=== PATIENT | female | born 1985 | race Caucasian/White ===

== ENCOUNTER 2016-09-29 06:45 | Day surgery (SDC) | payer MEDICAID ==
[2016-09-28 17:06] VITALS: BMI 33.1
--- NOTE | 2016-09-28 20:02 | PREOPHP ---
DATE OF ADMISSION: 09/29/2016 HISTORY OF PRESENT ILLNESS: Rosario is a 31-year-old, 4, para 4, desires permanent surgical sterilization. PAST MEDICAL HISTORY: None. MEDICATIONS: None. PAST SURGICAL HISTORY: None. OBSTETRICAL HISTORY: Four vaginal delivery. Last delivery was May 03, 2016. GYNECOLOGICAL HISTORY: Regular at 3-4 days. Denies any sexually transmitted disease. Sexually active with 1 partner. SOCIAL HISTORY: Denies any smoking, drugs, or alcohol. FAMILY HISTORY: None. PHYSICAL EXAMINATION: HEENT: Within normal. LUNGS: CTA bilateral. CARDIAC: S1, S2. Regular rhythm. ABDOMEN: Soft, nontender. Negative distention. EXTREMITIES: Negative edema. No calf tenderness. GENITOURINARY: Vaginal exam, normal external genitalia. Cervix negative. Negative lesions. Adnexa negative for masses, nontender bilateral. Fundus within normal limits. ASSESSMENT: Multiparous, desires permanent surgical sterilization. PLAN: Is consent for laparoscopic bilateral tubal sterilization. Risks, benefits, and alternatives explained, all questions were answered. Dictated By: Ebenezer Hernández MD /everett/fredi /Document#: [id number]
[~2016-09-29] VITALS: Ht 147.3 cm; Wt 59.2 kg
[2016-09-29] VITALS (8 sets, daily range): BP systolic 113–130; BP diastolic 59–76; PULSE 68–88; RESP 12–18; Ht 147.3 cm; Wt 59.2 kg
[2016-09-29 07:35] LABS: BASOPHILS % 0.4 % (0.0-2.0); EOSINOPHILS # 0.1 10^3/ul (0.0-0.5); HEMATOCRIT 38.6 % (37.0-47.0); HEMOGLOBIN 12.9 g/dl (12.0-16.0); LYMPHOCYTES # 2.1 10^3/ul (0.8-2.9); MEAN CORPUSCULAR HEMOGLOBIN 29.5 pg (29.0-33.0); MEAN CORPUSCULAR HGB CONC 33.4 g/dl (32.0-37.0); MEAN CORPUSCULAR VOLUME 88.1 fl (82.0-101.0); MEAN PLATELET VOLUME 10.6 fl (7.4-10.4); MONOCYTE # 0.5 10^3/ul (0.3-0.9); MONOCYTES % 6.5 % (0.0-11.0); NEUTROPHILS % 62.7 % (39.0-77.0); PLATELET COUNT 291 10^3/UL (140-415); RED BLOOD COUNT 4.38 10^6/ul (4.20-5.40); RED CELL DISTRIBUTION WIDTH 13.7 % (11.5-14.5); WHITE BLOOD COUNT 7.3 10^3/ul (4.8-10.8)
[2016-09-29] MEDS ORDERED: PROPOFOL 20 ML ONE (08:05)
[2016-09-29] MEDS ORDERED: FENTAnyl 50 MCG/ML VIAL ONE (08:05)
[2016-09-29] MEDS ORDERED: ROCURONIUM 50 MG INJ ONE (08:05)
[2016-09-29] MEDS ORDERED: LIDOCAINE 1% (MDV) 20 ML INJ ONE (08:05)
[2016-09-29] MEDS ORDERED: MIDAZOLAM 1 MG/ML 2 ML INJ ONE (08:05)
[2016-09-29] MEDS ORDERED: PHENYLephrine (100 MCG/ML) 5ML SYG ONE (08:14)
[2016-09-29] MEDS ORDERED: CEFAZOLIN 1 GM INJ ONE (08:15)
[2016-09-29] MEDS ORDERED: DEXAMETHASONE 4 MG/ML 1 ML INJ ONE (08:15)
[2016-09-29] MEDS ORDERED: FAMOTIDINE 20 MG INJ ONE (08:15)
[2016-09-29] MEDS ORDERED: ONDANSETRON 4 MG INJ ONE (08:15)
[2016-09-29] MEDS ORDERED: ATROPINE 1 MG/10 ML SYRINGE ONE (08:40)
[2016-09-29] MEDS ORDERED: SUGAMMADEX SODIUM 200 MG/2 ML VIAL IV ONE (08:49)
[2016-09-29] MEDS ORDERED: KETOROLAC 30 MG INJ ONE (08:50)
--- NOTE | 2016-09-29 08:53 | SIPON ---
Date/Time of Note Date/Time of Note DATE: 09/29/16 TIME: 08:52 Operative Report Preoperative Diagnosis multiparous desire surgical sterilization Postoperative Diagnosis same Operation/Procedure Performed laparoscopic tubal fulguration Surgeon: GINA LANIER MD Anesthesia Type: general Estimated Blood Loss: minimal Transfusion Required: no Specimen: none Grafts/Implants: none Complications: no GINA LANIER MD Sep 29, 2016 08:53
--- NOTE | 2016-09-29 09:25 | PD.PPDC ---
[facility] Discharge Instruction Condition Patient Condition: Fair Diet Diet: Resume Regular Diet Activity/Restrictions Activity: Normal Activity May Shower Restrictions: No Exercising No Lifting No Driving No Sexual Activity Nothing in the Vagina No [place] No Tampons, douche Follow-up Follow-up with Physician: 2, Week/Weeks Return to clinic for [facility] REP Instructions: Fever greater than 101 Chills Worsening abdominal pain Excessive Vaginal Bleeding More than 2 pads per hour Unable to tolerate diet OB Instructions: Breast Tenderness Depression Blurried Vision Headache Surgical Instructions: Incisional Drainage Incisional Redness GINA LANIER MD Sep 29, 2016 09:25
[2016-09-29] MEDS ORDERED: HYDROmorphONE (0.2 MG/ML) 10ML SYG IV PRN ×2 (09:30)
--- NOTE | 2016-09-29 11:44 | OPR ---
DATE OF OPERATION: 09/29/2016 PREOPERATIVE DIAGNOSIS: Parity, desires permanent surgical sterilization. POSTOPERATIVE DIAGNOSIS: Parity, desires permanent surgical sterilization. OPERATION PERFORMED: Laparoscopic bilateral tubal fulguration. SURGEON: Dr. Hernández. FORM [employer] [address] [address] FORMS: None. ANESTHESIA: General. COMPLICATIONS: None. ESTIMATED BLOOD LOSS: Minimal. FINDINGS: Normal uterus, tubes, and ovaries. OPERATIVE PROCEDURE: The patient was taken to the operating room, where general anesthesia was obtained without difficulty. The patient was then found to have a small anteverted uterus with normal adnexa. She was then placed in a dorsal lithotomy position and prepared and draped in a sterile fashion. A heavy- weighted speculum was then placed in the patient's vagina and the anterior lip of the cervix was grasped with a single-tooth tenaculum. A HUMI uterine manipulator was then advanced into the uterus to provide means to manipulate the uterus. The speculum was then removed from the vagina. Attention was then turned to the patient's abdomen where a 5 mm skin incision was made in an umbilical fold. A Veress needle was carefully introduced into the peritoneal cavity at 45-degree angle while tenting the abdominal wall. Intraperitoneal placement was confirmed by use of water-filled syringe and drop in pressure with insufflation of CO2 gas. The trocar and sleeve were then advanced without difficulty into the abdomen where the intra- abdominal placement was confirmed by scope. Pneumoperitoneum was obtained with 4 L of CO2 gas and a 5 mm trocar and sleeve were then advanced without difficulty into the abdomen where intra- abdominal placement was confirmed by a laparoscope. A 2nd skin incision was made 2 cm above the symphysis pubis in the midline. The 2nd trocar and sleeve were then advanced under direct visualization. A survey of the patient's pelvis and abdomen revealed entirely normal anatomy. At this point, using a bipolar, the left fallopian tube identified and multiple areas of the fallopian tube and ischial and ampullary area were fulgurated with good blanching. Similarly, the right fallopian tube was fulgurated. There was bleeding in the mesosalpinx. The instruments were then removed from the patient's abdomen and the incision was repaired with 3-0 Vicryl. The HUMI was then removed from the vagina with no bleeding noted from the cervix. The patient tolerated procedure well. Sponge, lap, and needle counts correct x2. The patient was taken to recovery in stable condition. Dictated By: Ebenezer Hernández MD /everett/della /Document#: [id number]
== END 2016-09-29 10:35 | disposition home or self-care (01) ==
LOC: SDS 06:45
PROVIDERS: ATTEND Obstetrics & Gynecology
DX: Z30.2 Encounter for sterilization (principal)
CPT/HCPCS: 58670; 84702; 84703; 85025; J0690; J1885; J2250; J2370; J3010; Z7512; Z7610; J0461; J1100; J2405